=== PATIENT | female | born 1955 | race Caucasian/White ===

== ENCOUNTER 2017-01-01 01:24 | Emergency (ER) | payer BC, OTHER ==
[~2017-01-01] VITALS: Ht 165.1 cm; Wt 57.0 kg
[2017-01-01 01:36] VITALS: BP 152/75
[2017-01-01] MEDS ORDERED: ONDANSETRON 2MG/ML, 2ML IVPush ONE (02:00)
[2017-01-01] MEDS ORDERED: SODIUM CHLORIDE FLUSH 10ML SYR IVF ONE (02:00)
[2017-01-01] MEDS ORDERED: HYDROmorphone 1 MG/ML, 1ML IVPush PRN (02:00)
[2017-01-01] MEDS ORDERED: KETOROLAC 30 MG/1 ML IV ONE (02:00)
[2017-01-01] MEDS ORDERED: HYDROmorphone 1 MG/ML, 1ML ONE (02:11)
[2017-01-01] MEDS ORDERED: ONDANSETRON 2MG/ML, 2ML ONE (02:12)
[2017-01-01] MEDS ORDERED: KETOROLAC 30 MG/1 ML ONE (02:12)
== END 2017-01-01 03:16 | disposition home or self-care (01) ==
LOC: ED 02:58
DX: M71.552 Other bursitis, not elsewhere classified, left hip (principal); M65.28 Calcific tendinitis, other site; J45.909 Unspecified asthma, uncomplicated; Z90.710 Acquired absence of both cervix and uterus; Z88.0 Allergy status to penicillin; Z88.5 Allergy status to narcotic agent
CPT/HCPCS: 73502; 96374; 96375; 99284; J1170; J1885; J2405

== ENCOUNTER → 2018-02-23 | Outpatient (CLI) | payer OTHER | END | disposition home or self-care (01) | LOC: RAD 08:53 | PROVIDERS: ATTEND Surgery | DX: E04.1 Nontoxic single thyroid nodule (principal) | CPT/HCPCS: 76536; 76942 ==

== ENCOUNTER → 2018-09-08 | Outpatient (CLI) | payer OTHER ==
[~2018-09-08] MED LIST: REGADENOSON 0.4 MG/5 ML SYRINGE ONE
== END | disposition home or self-care (01) ==
LOC: CFH 06:47
PROVIDERS: ATTEND Internal Medicine Cardiovascular Disease
DX: I08.2 Rheumatic disorders of both aortic and tricuspid valves (principal)
CPT/HCPCS: 78452; 93017; 93306; A9502; J2785

== ENCOUNTER → 2018-09-19 | Outpatient (CLI) | payer OTHER | END | disposition home or self-care (01) | LOC: CFH 14:05 | PROVIDERS: ATTEND Internal Medicine | DX: J43.1 Panlobular emphysema (principal); E88.01 Alpha-1-antitrypsin deficiency; J47.9 Bronchiectasis, uncomplicated; J84.10 Pulmonary fibrosis, unspecified; M41.84 Other forms of scoliosis, thoracic region; E04.2 Nontoxic multinodular goiter | CPT/HCPCS: 71250; 74176 ==

== ENCOUNTER 2018-11-17 09:59 | Day surgery (SDC) | payer OTHER ==
[~2018-11-17] VITALS: Ht 166.4 cm; Wt 58.6 kg
[~2018-11-17 09:59] MED LIST changes: +ASCO500T8 PO; +FLUT10.6 INH; +L. A1CAP14 PO; +MAGN300C PO; +MONT10TA6 PO; -REGADENOSON 0.4 MG/5 ML SYRINGE ONE; +TIOT4MIS3 INH; +UBID1CAP43 PO
[2018-11-17 10:46] VITALS: BP 146/79
[2018-11-17] MEDS ORDERED: [UNRECOGNIZED DRUG - CODE] IV (11:05)
[2018-11-17] MEDS ORDERED: FLUT1BLS3 INH (11:06)
[2018-11-17] MEDS ORDERED: VITA100C8 PO (11:06)
[2018-11-17] MEDS ORDERED: MONT10TA6 PO (11:09)
[2018-11-17] MEDS ORDERED: BIFI4CAP PO (11:21)
[2018-11-17] MEDS ORDERED: [UNRECOGNIZED DRUG - OTHER] PO (11:22)
[2018-11-17] MEDS ORDERED: FENTANYL PF 250 MCG/5ML ONE (13:12)
[2018-11-17] MEDS ORDERED: MIDAZOLAM 1 MG/ML, 5ML ONE (13:12)
[2018-11-17] MEDS ORDERED: HEPARIN 1,000 UNITS/ML, 10ML ONE (13:13)
[2018-11-17] MEDS ORDERED: LIDOCAINE 1%, 20ML ONE (13:13)
[2018-11-17] MEDS ORDERED: VERAPAMIL 2.5 MG/ML, 2ML ONE (13:13)
[2018-11-17] MEDS ORDERED: DIPHENHYDRAMINE 50 MG/ML, 1ML ONE (13:24)
[2018-11-17] MEDS ORDERED: methylPREDNISolone SOD SUCC 125 MG/2 ML ONE (13:25)
[2018-11-17] MEDS ORDERED: SODIUM CHLORIDE 0.9% 1,000 ML IV SCH (14:36)
== END 2018-11-17 17:48 | disposition home or self-care (01) ==
LOC: CACL 09:59
PROVIDERS: ATTEND Internal Medicine Cardiovascular Disease
DX: R07.89 Other chest pain (principal); E88.01 Alpha-1-antitrypsin deficiency; Z88.6 Allergy status to analgesic agent; Z88.1 Allergy status to other antibiotic agents; Z88.0 Allergy status to penicillin; Z88.8 Allergy status to other drugs, medicaments and biological substances; Z72.89 Other problems related to lifestyle
CPT/HCPCS: 93460; 99156; 99157; C1769; C1894; J1200; J1644; J2250; J2930; J3010; Q9967

== ENCOUNTER → 2019-01-31 | Outpatient (CLI) | payer OTHER ==
[~2019-01-31] MED LIST changes: +BIFI4CAP PO; +FEXO1TAB25 PO; +FLUT1BLS3 INH; +VITA100C8 PO; +[UNRECOGNIZED DRUG - CODE] IV; +[UNRECOGNIZED DRUG - OTHER] PO
== END | disposition home or self-care (01) ==
LOC: CFH 10:37
PROVIDERS: ATTEND Surgery
DX: E04.2 Nontoxic multinodular goiter (principal)
CPT/HCPCS: 76536